=== PATIENT | male | born 1965 | race Caucasian/White ===

== ENCOUNTER 2016-11-26 16:57 | Emergency (ER) | payer OTHER, BC ==
[2016-11-26 17:15] VITALS: BP 145/86; PULSE 83; TEMP 98.1; BMI 28.0
--- NOTE | 2016-11-26 18:22 | PDOC ---
History of Present Illness - General Chief Complaint: Back Pain Stated Complaint: BACK PAIN Time Seen by Provider: 11/26/16 18:15 History Source: Patient Exam Limitations: No Limitations - History of Present Illness Initial Comments: CHIEF COMPLAINT: 51 y/o afebrile male with PMH anxiety, slipped discs in lumbar and cervical spine c/o left sided back pain. HISTORY OF PRESENT ILLNESS: The patient states he was lifting a pipe at work yesterday when he strained his lower back. He continues to have pain that radiates down his left leg into his toes. He denies fall onto back, saddle numbness, urinary or bowel incontinence. He has been taking 800mg of ibuprofen with little relief. Vital signs on arrival are within normal limits. REVIEW OF SYSTEMS: GENERAL/CONSTITUTIONAL: No fever/chills. No weakness. No weight change. HEAD, EYES, EARS, NOSE AND THROAT: No change in vision. No ear pain or discharge. No sore throat. GENITOURINARY: No dysuria, frequency, or change in urination. MUSCULOSKELETAL: +left leg pain. No neck pain. +left sided low back pain. SKIN: No rash or easy bruising. NEUROLOGIC: No headache, vertigo, loss of consciousness, or loss of sensation. PHYSICAL EXAM: GENERAL: The patient is awake, alert, and fully oriented, in no acute distress. He is ambulatory with slowed movements. ABDOMEN: Soft, non-distended, non-tender even to deep palpation, no hepatomegaly or splenomegaly, no masses. BACK: Pain with palpation of left lumbar paravertebral muscles. No midline lumbar spine TTP, step offs or crepitus. EXTREMITIES: Normal range of motion, no edema. NEUROLOGICAL: Normal speech, normal gait. CN II-XII grossly intact. No saddle anesthesia. SKIN: Warm, dry, normal turgor, no rashes or lesions noted. Past History - Past Medical History Allergies/Adverse Reactions: Allergies Allergy/AdvReac Type Severity Reaction Status Date / Time No Known Allergies Allergy Verified 11/26/16 17:12 Home Medications: Ambulatory Orders Amlodipine Besylate [Norvasc -] 10 mg PO DAILY 12/27/11 Lorazepam [Ativan] 1 mg PO TID PRN 07/01/13 Aspirin [Keshawn Chewable] 81 mg PO DAILY 07/13/15 Azelastine HCl [Astelin] 137 mcg NS BID PRN 07/13/15 Cetirizine HCl [Zyrtec -] 10 mg PO DAILY PRN 07/13/15 Diazepam [Valium] 10 mg PO TID #18 tablet MDD 6 11/26/16 Ibuprofen 800 mg PO TID #18 tablet 11/26/16 HTN: Yes Psychiatric Problems: Yes (ANXIETY) - Immunization History Td Vaccination: No (unknown) Immunization Up to Date: Yes - Psycho/Social/Smoking Cessation Hx Anxiety: Yes Suicidal Ideation: No Smoking Status: Yes Smoking History: Current every day smoker Years of Tobacco Use: 30 Have you smoked in the past 12 months: Yes Number of Cigarettes Smoked Daily: 10 Information on smoking cessation initiated: No 'Breaking Loose' booklet given: 03/22/16 Hx Alcohol Use: No Drug/Substance Use Hx: No *Physical Exam - Vital Signs Last Vital Signs Temp Pulse Resp BP Pulse Ox 98.1 F 83 19 145/86 97 11/26/16 17:12 11/26/16 17:12 11/26/16 17:12 11/26/16 17:12 11/26/16 17:12 Medical Decision Making - Medical Decision Making A/P: 51 y/o male with back muscle strain. He does have a history of back issues, and informs me he has a pain management doctor and a regular doctor he is going to follow up with. Plan is as follows: 1. PO valium 2. IM toradol The patient states he feels some relief after toradol and valium and appears slightly more comfortable. Will discharge the patient to home with rx for 800mg of ibuprofen and valium. INformed him valium can cause drowsiness so try not to take if he's going to work or driving. Instructed him to f/u with his PCP and pain management doctor within 1 week and return to the ER with any worsening or concerning symptoms. The patient verbalizes understanding of all instructions, has no further questions and is awaiting discharge. *DC/Admit/Observation/Transfer Diagnosis at time of Disposition: Back pain Qualifiers: Back pain location: low back pain Chronicity: acute Back pain laterality: left Sciatica presence: with sciatica Sciatica laterality: sciatica of left side Qualified Code(s): M54.42 - Lumbago with sciatica, left side - Discharge Dispostion Disposition: HOME Condition at time of disposition: Improved - Referrals Referrals: Thomas,Comer, MD [Primary Care Provider] - Call tomorrow - Patient Instructions Printed Discharge Instructions: DI for Low Back Pain Additional Instructions: Discharge Instructions: -Take Ibuprofen and Valium as prescribed -Valium may cause drowsiness. -Follow up with your doctor and your paperhanger and painter within 1 week -Return to the ER with any worsening or concerning symptoms - Post Discharge Activity Work/School Note: Back to Work
[2016-11-26] MEDS ORDERED: diazePAM 5 MG TABLET PO ONE (18:48)
[2016-11-26] MEDS ORDERED: KETOROLAC TROMETHAMINE 60 MG/2 ML VIAL IM ONE (18:48)
[2016-11-26] MEDS ORDERED: KETOROLAC TROMETHAMINE 60 MG/2 ML VIAL ONE (19:01)
[2016-11-26] MEDS ORDERED: diazePAM 5 MG TABLET ONE (19:02)
== END 2016-11-26 19:42 | disposition home or self-care (01) ==
LOC: JERFT 16:57
PROC: 3E0233Z Introduction of Anti-inflammatory into Muscle, Percutaneous Approach (ICD-10-PCS; principal; 2016-11-26)
DX: M54.42 Lumbago with sciatica, left side (principal); I10 Essential (primary) hypertension; F41.9 Anxiety disorder, unspecified; M50.20 Other cervical disc displacement, unspecified cervical region
CPT/HCPCS: 99281-25

== ENCOUNTER 2016-11-29 09:03 | Emergency (ER) | payer OTHER, BC ==
[2016-11-29 09:10] VITALS: BP 137/82; PULSE 88; TEMP 97.7; BMI 28.0
[2016-11-29] MEDS ORDERED: KETOROLAC TROMETHAMINE 60 MG/2 ML VIAL IM ONE (09:56)
--- NOTE | 2016-11-29 10:02 | PDOC ---
History of Present Illness - General Chief Complaint: Back Pain Stated Complaint: BACK PAIN Time Seen by Provider: 11/29/16 09:39 History Source: Patient Exam Limitations: No Limitations - History of Present Illness Initial Comments: 11/29/16 09:57 51 yr male with chronic low back pain and left elg sciatica. Pt states he has had pain for one week not relieved with valium and ibuprofen. Pt denies urine or bowel incontinence , no groin numbness or tingling. Pt has anxiety and HTN. Severity: reports: moderate Pain Location: reports: back Past History - Past Medical History Allergies/Adverse Reactions: Allergies Allergy/AdvReac Type Severity Reaction Status Date / Time No Known Allergies Allergy Verified 11/29/16 09:06 Home Medications: Ambulatory Orders Amlodipine Besylate [Norvasc -] 10 mg PO DAILY 12/27/11 Lorazepam [Ativan] 1 mg PO TID PRN 07/01/13 Aspirin [Keshawn Chewable] 81 mg PO DAILY 07/13/15 Azelastine HCl [Astelin] 137 mcg NS BID PRN 07/13/15 Cetirizine HCl [Zyrtec -] 10 mg PO DAILY PRN 07/13/15 Diazepam [Valium] 10 mg PO TID #18 tablet MDD 6 11/26/16 Ibuprofen 800 mg PO TID #18 tablet 11/26/16 Oxycodone HCl/Acetaminophen [Percocet 5-325 mg Tablet] 1 - 2 tab PO Q6H PRN #12 tab MDD 8 tabs 11/29/16 HTN: Yes Psychiatric Problems: Yes (ANXIETY) - Immunization History Td Vaccination: No (unknown) Immunization Up to Date: Yes - Psycho/Social/Smoking Cessation Hx Anxiety: Yes Suicidal Ideation: No Smoking Status: Yes Smoking History: Current every day smoker Years of Tobacco Use: 30 Have you smoked in the past 12 months: Yes Number of Cigarettes Smoked Daily: 10 Information on smoking cessation initiated: Yes 'Breaking Loose' booklet given: 11/29/16 Hx Alcohol Use: No Drug/Substance Use Hx: No Substance Use Type: None Trauma Specific PMHX - Complaint Specific PMHX Arthritis: No Back Injury: Yes (workers comp injury ) Review of Systems - Review of Systems Able to Perform ROS?: Yes Is the patient limited Turkmen proficient: No Constitutional: No: Symptoms Reported HEENTM: No: Symptoms Reported Respiratory: No: Symptoms reported Cardiac (ROS): No: Symptoms Reported ABD/GI: No: Symptoms Reported : No: Symptoms Reported Musculoskeletal: Yes: See HPI, Back Pain Integumentary: No: Symptoms Reported Neurological: No: Symptoms reported *Physical Exam - Vital Signs Last Vital Signs Temp Pulse Resp BP Pulse Ox 97.7 F 88 18 137/82 100 11/29/16 09:07 11/29/16 09:07 11/29/16 09:07 11/29/16 09:07 11/29/16 09:07 - Physical Exam General Appearance: Yes: Nourished, Appropriately Dressed, Other (ambulatory ) HEENT: positive: EOMI, PHOEBE Neck: positive: Supple. negative: Tender Respiratory/Chest: positive: Lungs Clear, Normal Breath Sounds Cardiovascular: positive: Regular Rhythm, Regular Rate Musculoskeletal: positive: Normal Inspection, Decreased Range of Motion, Other ( left lower back to buttock tenderness, SLR left positive ). negative: CVA Tenderness, CVA Tenderness (R), CVA Tenderness (L) Extremity: positive: Normal Capillary Refill, Normal Inspection Integumentary: positive: Normal Color, Dry, Warm Neurologic: positive: Fully Oriented, Alert, Normal Mood/Affect, Normal Response , Motor Strength 5/5 Medical Decision Making - Medical Decision Making 11/29/16 10:04 cc: acute on chronic LBP with left leg sciatica no saddle anesthesia , neg bowel or bladder dysfunction pt ambulatory with slight limp will give toradol (pt states this helped last time) pt refused steroids (states it makes him "crazy") pt refused any imaging, states he knows he has herniated discs and sciaitca, has apt with spine neurosurgeon at [facility] on Wednesday will give percocet for pain and pt agree and understand the plan I have discussed "red flags" for pt to watch for and will return to ER if needed *DC/Admit/Observation/Transfer Diagnosis at time of Disposition: Back pain Qualifiers: Back pain location: low back pain Chronicity: chronic Back pain laterality: left Sciatica presence: with sciatica Sciatica laterality: sciatica of left side Qualified Code(s): M54.42 - Lumbago with sciatica, left side; G89.29 - Other chronic pain - Discharge Dispostion Disposition: HOME Condition at time of disposition: Fair - Prescriptions Prescriptions: Oxycodone HCl/Acetaminophen [Percocet 5-325 mg Tablet] 1 - 2 tab PO Q6H PRN #12 tab MDD 8 tabs PRN Reason: Severe Pain - Patient Instructions Additional Instructions: follow with your doctor this week for follow up take the medication as prescribed DO NOT take percocet with valium, space apart no heavy lifting or bending no strenuous activity - Post Discharge Activity Work/School Note: Back to Work
[2016-11-29] MEDS ORDERED: KETOROLAC TROMETHAMINE 60 MG/2 ML VIAL ONE (10:03)
== END 2016-11-29 10:19 | disposition home or self-care (01) ==
LOC: JERFT 09:03
PROC: 3E0233Z Introduction of Anti-inflammatory into Muscle, Percutaneous Approach (ICD-10-PCS; principal; 2016-11-29)
DX: M54.42 Lumbago with sciatica, left side (principal); G89.29 Other chronic pain; I10 Essential (primary) hypertension; F41.9 Anxiety disorder, unspecified; F17.210 Nicotine dependence, cigarettes, uncomplicated; S39.82XS Other specified injuries of lower back, sequela; X58.XXXS Exposure to other specified factors, sequela
CPT/HCPCS: 99281-25

== ENCOUNTER 2016-12-08 21:26 | Emergency (ER) | payer BC, OTHER ==
[2016-12-08 21:52] VITALS: TEMP 98.2; BMI 29.5
--- NOTE | 2016-12-08 22:29 | PDOC ---
History of Present Illness - General History Source: Patient <Pipo Mittal - Last Filed: 12/08/16 22:46> - General History Source: Patient Exam Limitations: No Limitations - History of Present Illness Initial Comments: 12/08/16 22:44 The patient is a 51-year-old male, with a significant past medical history of HTN and anxiety, who presents to the ED with elevation of BP and anxiety after taking his dose of prednisone which he was prescribed for treatment of his sciatica. Pt has experienced a similar episode in the past. This time patient received a lower dose of prednisone because his tachycardia, BP elevation, and anxiety was much worse during his previous episode. On exam, patient does report some numbness around his lips. He denies any chest pain or shortness of breath. PCP: Dr. Guzman <Ingrid Morel - Last Filed: 12/08/16 22:51> - General Chief Complaint: Psychiatric Stated Complaint: Palpitations Time Seen by Provider: 12/08/16 22:28 Past History - Past Medical History HTN: Yes Psychiatric Problems: Yes (ANXIETY) - Immunization History Td Vaccination: No (unknown) Immunization Up to Date: Yes - Psycho/Social/Smoking Cessation Hx Anxiety: Yes Suicidal Ideation: No Smoking Status: Yes Smoking History: Unknown if ever smoked Years of Tobacco Use: 30 Have you smoked in the past 12 months: Yes Number of Cigarettes Smoked Daily: 10 Information on smoking cessation initiated: No 'Breaking Loose' booklet given: 11/29/16 Hx Alcohol Use: No Drug/Substance Use Hx: No Substance Use Type: None <Pipo Mittal - Last Filed: 12/08/16 22:46> <Ingrid Morel - Last Filed: 12/08/16 22:51> - Past Medical History Allergies/Adverse Reactions: Allergies Allergy/AdvReac Type Severity Reaction Status Date / Time No Known Allergies Allergy Verified 12/08/16 21:46 Home Medications: Ambulatory Orders Amlodipine Besylate [Norvasc -] 10 mg PO DAILY 12/27/11 Lorazepam [Ativan] 1 mg PO TID PRN 07/01/13 Diazepam [Valium] 10 mg PO TID #18 tablet MDD 6 11/26/16 Ibuprofen 800 mg PO TID #18 tablet 11/26/16 Oxycodone HCl/Acetaminophen [Percocet 5-325 mg Tablet] 1 - 2 tab PO Q6H PRN #12 tab MDD 8 tabs 11/29/16 Prednisone [Deltasone -] 4 mg PO QID 12/08/16 Review of Systems - Review of Systems Able to Perform ROS?: Yes Comments:: 12/08/16 22:44 CONSTITUTIONAL: Absent: fever, no chills, no fatigue EYES: Absent: visual changes ENT: Absent: ear pain, no sore throat CARDIOVASCULAR: Absent: chest pain, no palpitations RESPIRATORY: Absent: cough, no SOB GI: Absent: abdominal pain, no nausea, no vomiting, no constipation, no diarrhea GENITOURINARY: Absent: dysuria, no frequency, no hematuria MUSKULOSKELETAL: Absent: back pain, no arthralgia, no myalgia SKIN: Absent: rash NEURO Present: numbness around lips Absent: headache <Ingrid Morel - Last Filed: 12/08/16 22:51> *Physical Exam - Vital Signs Last Vital Signs Temp Pulse Resp BP Pulse Ox 98.2 F 98 H 14 137/93 97 12/08/16 21:46 12/08/16 21:46 12/08/16 21:46 12/08/16 22:23 12/08/16 22:23 <Pipo Mittal - Last Filed: 12/08/16 22:46> - Vital Signs Last Vital Signs Temp Pulse Resp BP Pulse Ox 98.2 F 98 H 14 137/93 97 12/08/16 21:46 12/08/16 21:46 12/08/16 21:46 12/08/16 22:23 12/08/16 22:23 - Physical Exam Comments: 12/08/16 22:45 GENERAL: Well-appearing, well-nourished. No apparent distress. HEENT: Normocephalic, atraumatic. PERRL, EOM intact. CARDIOVASCULAR: Normal S1, S2. Regular rate and rhythm. PULMONARY: Clear to auscultation bilaterally. ABDOMEN: Soft, non-distended, non-tender. EXTREMITIES: Normal ROM in all four extremities. No gross deformities. SKIN: Warm, dry. No rash NEUROLOGICAL: No focal neurological deficits. <Ingrid Morel - Last Filed: 12/08/16 22:51> Heart Score/ECG Review - ECG Intrepretation Comment:: 12/08/16 22:50 EKG was reviewed by Dr. Mittal at 22:40. Impression: Normal sinus rhythm. <Ingrid Morel - Last Filed: 12/08/16 22:51> Medical Decision Making - Medical Decision Making 12/08/16 22:47 Dr. Mittal: The scribe's documentation has been prepared under my direction and personally reviewed by me in its entirery. I confirm that the note above accurately reflects all work, treatment, procedures, and medical decision making performed by me. Pt feels better. EKG shows NSR 73, with no changes. Pt will be discharged. <Pipo Mittal - Last Filed: 12/08/16 22:46> *DC/Admit/Observation/Transfer - Discharge Dispostion Admit: No <Pipo Mittal - Last Filed: 12/08/16 22:46> - Attestations Scribe Attestion: 12/08/16 22:45 Documentation prepared by Ingrid Morel, acting as medical office secretary for Pipo Mittal MD. <Ingrid Morel - Last Filed: 12/08/16 22:51> Diagnosis at time of Disposition: Anxiety, Palpitations - Discharge Dispostion Disposition: HOME - Referrals Referrals: Souleymane Guzman MD [Primary Care Provider] - - Patient Instructions Printed Discharge Instructions: DI for Anxiety -- Adult, DI for Palpitations
[2016-12-08 22:51] VITALS: BP 133/91; PULSE 74
--- NOTE | 2016-12-09 13:22 | EKG ---
Test Reason : Blood Pressure : / mmHG Vent. Rate : 073 BPM Atrial Rate : 073 BPM P-R Int : 194 ms QRS Dur : 092 ms QT Int : 370 ms P-R-T Axes : 059 037 033 degrees QTc Int : 407 ms NORMAL SINUS RHYTHM NORMAL ECG WHEN COMPARED WITH ECG OF 13-JUL-2015 19:44, NO SIGNIFICANT CHANGE WAS FOUND Confirmed by SHEILA CHAUDHARY MD ([id number]) on 12/09/2016 1:21:58 PM Referred By: Confirmed By:SHEILA CHAUDHARY MD
== END 2016-12-08 22:51 | disposition home or self-care (01) ==
LOC: JER 21:26
DX: F41.9 Anxiety disorder, unspecified (principal); R00.2 Palpitations; I10 Essential (primary) hypertension; M54.30 Sciatica, unspecified side
CPT/HCPCS: 93005; 93010; 99281-25

== ENCOUNTER 2017-01-13 17:59 | Emergency (ER) | payer BC ==
[2017-01-13 18:02] VITALS: BP 141/98; PULSE 76; TEMP 98; BMI 28.0
== END 2017-01-13 20:16 | disposition left against medical advice (07) ==
LOC: JER 17:59
DX: Z53.21 Procedure and treatment not carried out due to patient leaving prior to being seen by health care provider (principal)
CPT/HCPCS: 99281-25

== ENCOUNTER 2017-01-17 17:05 | Emergency (ER) | payer BC ==
[2017-01-17 17:11] VITALS: BMI 27.7
--- NOTE | 2017-01-17 17:25 | PDOC ---
Attending Attestation - Resident Resident Name: Gen Kumar - ED Attending Attestation I have performed the following: I have examined & evaluated the patient, The case was reviewed & discussed with the resident, I agree w/resident's findings & plan, Exceptions are as noted - HPI HPI: 01/18/17 11:23 Dizzy/Vertigo - Physicial Exam PE: 01/18/17 11:23 Horizontal Nystagmus - Medical Decision Making 01/18/17 11:[address] Kumar Assessment and management plan
--- NOTE | 2017-01-17 18:05 | PDOC ---
History of Present Illness - General Chief Complaint: Lightheaded Stated Complaint: FATIGUE, DIZZINES Time Seen by Provider: 01/17/17 17:16 History Source: Patient Exam Limitations: No Limitations - History of Present Illness Initial Comments: 01/17/17 17:59 Patient is a 51M with history of anxiety and HTN here today complaining of dizziness for the past several weeks. He states that he went to urgent care, where he was told he had vertigo. He endorses associated nausea. He denies diaphoresis, chest pain and shortness of breath. The dizziness is described as the room moving around him. The dizziness is made worse by positional changes. He denies fevers and chills. Past History - Past Medical History Allergies/Adverse Reactions: Allergies Allergy/AdvReac Type Severity Reaction Status Date / Time No Known Allergies Allergy Verified 01/17/17 17:10 Home Medications: Ambulatory Orders Amlodipine Besylate [Norvasc -] 10 mg PO DAILY 12/27/11 Lorazepam [Ativan] 1 mg PO BID PRN 07/01/13 Meclizine HCl 25 mg PO PRN PRN 01/17/17 HTN: Yes Psychiatric Problems: Yes (ANXIETY) - Immunization History Td Vaccination: No (unknown) Immunization Up to Date: Yes - Psycho/Social/Smoking Cessation Hx Anxiety: No Suicidal Ideation: No Smoking Status: Yes Smoking History: Former smoker Years of Tobacco Use: 30 Have you smoked in the past 12 months: Yes Number of Cigarettes Smoked Daily: 10 If you are a former smoker, when did you quit?: 1 MONTH Information on smoking cessation initiated: No 'Breaking Loose' booklet given: 11/29/16 Hx Alcohol Use: No Drug/Substance Use Hx: No Substance Use Type: None Cardiac Specific PMH - Complaint Specific PMHX GERD: No Review of Systems - Review of Systems Comments:: 01/17/17 18:05 GENERAL/CONSTITUTIONAL: No fever or chills. No weakness. HEAD, EYES, EARS, NOSE AND THROAT: No change in vision. No ear pain or discharge. No sore throat. CARDIOVASCULAR: No chest pain or shortness of breath RESPIRATORY: No cough, wheezing, or hemoptysis. GASTROINTESTINAL: Positive for nausea. Negative for vomiting, diarrhea or constipation. GENITOURINARY: No dysuria, frequency, or change in urination. SKIN: No rash NEUROLOGIC: Positive for sinus headache. Negative for vertigo, loss of consciousness, or change in strength/sensation. HEMATOLOGIC/LYMPHATIC: No anemia, easy bleeding, or history of blood clots. ALLERGIC/IMMUNOLOGIC: No hives or skin allergy. *Physical Exam - Vital Signs Last Vital Signs Temp Pulse Resp BP Pulse Ox 98.4 F 82 20 146/82 98 01/17/17 17:06 01/17/17 17:06 01/17/17 17:06 01/17/17 17:06 01/17/17 17:06 - Physical Exam Comments: 01/17/17 18:06 GENERAL: Awake, alert, and fully oriented, in no acute distress HEAD: No signs of trauma, normocephalic, atraumatic EYES: PERRLA, EOMI, horizontal nystagmus, sclera anicteric, conjunctiva clear ENT: Auricles normal inspection, hearing grossly normal, nares patent, oropharynx clear without exudates. Moist mucosa LUNGS: No distress, speaks full sentences, clear to auscultation bilaterally HEART: Regular rate and rhythm, normal S1 and S2, no murmurs, rubs or gallops, peripheral pulses normal and equal bilaterally. ABDOMEN: Soft, nontender, normoactive bowel sounds. No guarding, no rebound. No masses EXTREMITIES: Normal inspection, Normal range of motion, no edema. No clubbing or cyanosis. NEUROLOGICAL: Cranial nerves II through XII grossly intact. Normal speech, normal gait, no focal sensorimotor deficits SKIN: Warm, Dry, normal turgor, no rashes or lesions noted. ED Treatment Course - LABORATORY CBC & Chemistry Diagram: 01/17/17 18:23 01/17/17 18:23 - ADDITIONAL ORDERS Additional order review: 01/17/17 18:23 RBC 4.48 MCV 94.5 MCHC 34.1 RDW 13.3 MPV 6.6 L Neutrophils % 54.6 Lymphocytes % 31.3 Monocytes % 10.5 H Eosinophils % 2.8 Basophils % 0.8 - RADIOLOGY Radiology Studies Ordered: Category Date Time Status CHEST PA & LAT [RAD] Stat Radiology 01/17/17 17:56 Ordered Medical Decision Making - Medical Decision Making 01/17/17 18:08 Patient is a 51M with history of anxiety and HTN here today complaining of weakness. Vital signs stable. Differential diagnosis includes: vertigo, arrhythmia, and ACS. Will do cardiac workup to rule out cardiac cause of dizziness. 01/17/17 18:57 HEART score 2 before troponin result. *DC/Admit/Observation/Transfer Diagnosis at time of Disposition: Dizziness - Attestations Physician Attestion: 01/17/17 19:03 I, Dr. Gen Kumar, attest that this document has been prepared under my direction and personally reviewed by me in its entirety. I further attest, that it accurately reflects all work, treatment, procedures and medical decision -making performed by me.
[2017-01-17 18:40] LABS: BASOPHIL 0.8 % (0-2.0); EOSINOPHIL 2.8 % (0-4.5); MCH 32.3 pg (25.7-33.7); MCHC 34.1 g/dl (32.0-35.9); MEAN CELL VOLUME 94.5 fl (80-96); MEAN PLT VOLUME 6.6 fl (7.5-11.1); NEUTROPHILS 54.6 % (42.8-82.8); PLATELET COUNT 290 K/MM3 (134-434); RDW 13.3 % (11.9-15.9); WHITE BLOOD COUNT 9.3 K/mm3 (4.0-10.0)
[2017-01-17 18:56] LABS: INR 1.03 (0.82-1.09); PROTHROMBIN TIME (PATIENT) 11.3 SEC (9.98-11.88)
[2017-01-17 19:02] LABS: ALBUMIN 3.8 g/dl (3.4-5.0); ANION GAP 6 (8-16); BILIRUBIN,TOTAL 0.3 mg/dL (0.2-1.0); CALCIUM 8.9 mg/dL (8.5-10.1); CO2 29 mmol/L (21-32); CREATININE 0.8 mg/dL (0.7-1.3); GLUCOSE,RANDOM 105 mg/dL (74-106); MAGNESIUM 2.2 mg/dL (1.8-2.4); SGOT/AST 17 U/L (15-37); SGPT/ALT 45 U/L (12-78); TOT PROT 6.5 g/dl (6.4-8.2)
[2017-01-17 19:05] LABS: ALK PHOS 79 U/L (45-117); CPK 77 IU/L (39-308); TROPONIN I < 0.02 ng/ml (0.00-0.05)
--- NOTE | 2017-01-17 20:00 | PDOC ---
*Physical Exam - Vital Signs Last Vital Signs Temp Pulse Resp BP Pulse Ox 98.4 F 82 20 146/82 98 01/17/17 17:06 01/17/17 17:06 01/17/17 17:06 01/17/17 17:06 01/17/17 17:06 ED Treatment Course - LABORATORY CBC & Chemistry Diagram: 01/17/17 18:23 01/17/17 18:23 - ADDITIONAL ORDERS Additional order review: Laboratory Results 01/17/17 01/17/17 18:23 18:23 INR 1.03 Sodium 140 Potassium 3.9 Chloride 105 Carbon Dioxide 29 Anion Gap 6 L BUN 14 Creatinine 0.8 Creat Clearance w eGFR > 60 Random Glucose 105 Calcium 8.9 Magnesium 2.2 D Total Bilirubin 0.3 D AST 17 ALT 45 Alkaline Phosphatase 79 Creatine Kinase 77 Troponin I < 0.02 Total Protein 6.5 Albumin 3.8 01/17/17 18:23 RBC 4.48 MCV 94.5 MCHC 34.1 RDW 13.3 MPV 6.6 L Neutrophils % 54.6 Lymphocytes % 31.3 Monocytes % 10.5 H Eosinophils % 2.8 Basophils % 0.8 Medical Decision Making - Medical Decision Making 01/17/17 19:41 Patient is a 51 year old male signed out to me by the day team (Dr. Kumar) C/O chest pain Dx: ACS workup - Check CXR - Check labs - discharge if normal 01/17/17 19:43 CBC WBC 9.3 K/mm3 (4.0-10.0) 01/17/17 18:23 RBC 4.48 M/mm3 (4.00-5.60) 01/17/17 18:23 Hgb 14.4 GM/dL (11.7-16.9) 01/17/17 18:23 Hct 42.3 % (35.4-49) 01/17/17 18:23 MCV 94.5 fl (80-96) 01/17/17 18:23 MCH 32.3 pg (25.7-33.7) 01/17/17 18:23 MCHC 34.1 g/dl (32.0-35.9) 01/17/17 18:23 RDW 13.3 % (11.9-15.9) 01/17/17 18:23 Plt Count 290 K/MM3 (134-434) 01/17/17 18:23 MPV 6.6 fl (7.5-11.1) L 01/17/17 18:23 Neutrophils % 54.6 % (42.8-82.8) 01/17/17 18:23 Lymphocytes % 31.3 % (8-40) 01/17/17 18:23 Monocytes % 10.5 % (3.8-10.2) H 01/17/17 18:23 Eosinophils % 2.8 % (0-4.5) 01/17/17 18:23 Basophils % 0.8 % (0-2.0) 01/17/17 18:23 Within normal limits CMP Sodium 140 mmol/L (136-145) 01/17/17 18:23 Potassium 3.9 mmol/L (3.5-5.1) 01/17/17 18:23 Chloride 105 mmol/L (98-107) 01/17/17 18:23 Carbon Dioxide 29 mmol/L (21-32) 01/17/17 18:23 Anion Gap 6 (8-16) L 01/17/17 18:23 BUN 14 mg/dL (7-18) 01/17/17 18:23 Creatinine 0.8 mg/dL (0.7-1.3) 01/17/17 18:23 Creat Clearance w eGFR > 60 (>60) 01/17/17 18:23 Random Glucose 105 mg/dL (74-106) 01/17/17 18:23 Calcium 8.9 mg/dL (8.5-10.1) 01/17/17 18:23 Magnesium 2.2 mg/dL (1.8-2.4) D 01/17/17 18:23 Total Bilirubin 0.3 mg/dL (0.2-1.0) D 01/17/17 18:23 AST 17 U/L (15-37) 01/17/17 18:23 ALT 45 U/L (12-78) 01/17/17 18:23 Alkaline Phosphatase 79 U/L (45-117) 01/17/17 18:23 Creatine Kinase 77 IU/L (39-308) 01/17/17 18:23 Troponin I < 0.02 ng/ml (0.00-0.05) 01/17/17 18:23 Total Protein 6.5 g/dl (6.4-8.2) 01/17/17 18:23 Albumin 3.8 g/dl (3.4-5.0) 01/17/17 18:23 Within normal limits, Trop(-), Reassuring for ACS CXR: No acute pathology noted Spoke, in depth, with patient and he is comfortable with discharge and planning follow up with ENT next week. Discussed various causes of vertigo and use and precautions for meclizine. Patient endorsed understanding. Provided lab results and return precautions *DC/Admit/Observation/Transfer Diagnosis at time of Disposition: Dizziness - Discharge Dispostion Disposition: HOME Condition at time of disposition: Stable Admit: No - Referrals Referrals: Souleymane Guzman MD [Primary Care Provider] - - Patient Instructions Printed Discharge Instructions: DI for Vertigo Additional Instructions: Thank you for trusting us with your health care today. I hope you were satisfied with the care we provided. Based on your symptoms and negative workup in the emergency department today, you have been diagnosed with vertigo, You should follow up with your primary care physician or Dr. Guzman in the next week for further evaluation of your vertigo. It is important to take all medication as directed by the prescribing physician. Meclizine is typically taken every 6 hours as needed for dizziness. You should take this if you start to feel dizzy. Take the next dose in 6 hours if you still feel dizzy. You can take an additional dose every 6 hours as long as you are feeling dizzy and discontinue as soon as you stop feeling the symptoms. You should use care when taking this medication because it can cause drowsiness. Avoid driving or operating heavy machenery until you know how the medicine will affect you. Please return to the emergency department if you have any significant worsening of your symptoms or develop any new or concerning symptoms. Print Language: AZERI - Attestations Physician Attestion: 01/17/17 20:06 I, Dr. Jesse Kevin, attest that this document has been prepared under my direction and personally reviewed by me in its entirety. I further attest, that it accurately reflects all work, treatment, procedures and medical decision -making performed by me.
[2017-01-17 21:32] VITALS: BP 140/65; PULSE 86; TEMP 98.2
--- NOTE | 2017-01-18 19:01 | EKG ---
Test Reason : Blood Pressure : / mmHG Vent. Rate : 065 BPM Atrial Rate : 065 BPM P-R Int : 174 ms QRS Dur : 092 ms QT Int : 378 ms P-R-T Axes : 015 015 005 degrees QTc Int : 393 ms NORMAL SINUS RHYTHM NORMAL ECG WHEN COMPARED WITH ECG OF 08-DEC-2016 22:40, NO SIGNIFICANT CHANGE WAS FOUND Confirmed by VENICE COYNE MD ([id number]) on 01/18/2017 7:01:32 PM Referred By: Confirmed By:VENICE COYNE MD
== END 2017-01-17 20:22 | disposition home or self-care (01) ==
LOC: JER 17:05
DX: R42 Dizziness and giddiness (principal); I10 Essential (primary) hypertension; F41.9 Anxiety disorder, unspecified
CPT/HCPCS: 36415; 71020-TC; 80053; 83735; 84484; 85025; 85610; 93005; 93010; 99284-25

== ENCOUNTER 2017-04-21 07:27 | Emergency (ER) | payer BC, OTHER ==
[2017-04-21 07:32] VITALS: BMI 28.5
[2017-04-21] MEDS ORDERED: KETOROLAC TROMETHAMINE 30 MG/1 ML VIAL IVPUSH ONE (08:40)
[2017-04-21] MEDS ORDERED: traMADol HCL 50 MG TABLET PO ONE (08:40)
--- NOTE | 2017-04-21 08:46 | PDOC ---
History of Present Illness - General Chief Complaint: Pain, Acute Stated Complaint: BACK AND SIDE PAIN Time Seen by Provider: 04/21/17 08:19 History Source: Patient - History of Present Illness Occurred: reports: other Severity: reports: severe Pain Location: reports: back Past History - Past Medical History Allergies/Adverse Reactions: Allergies Allergy/AdvReac Type Severity Reaction Status Date / Time No Known Allergies Allergy Verified 04/21/17 07:32 Home Medications: Ambulatory Orders Amlodipine Besylate [Norvasc -] 10 mg PO DAILY 12/27/11 Lorazepam [Ativan] 1 mg PO BID PRN 07/01/13 Meclizine HCl 25 mg PO PRN PRN 01/17/17 Tramadol HCl 50 mg PO Q6H #15 tablet MDD 200mg 04/21/17 COPD: No HTN: Yes Psychiatric Problems: Yes (ANXIETY) - Immunization History Td Vaccination: No (unknown) Immunization Up to Date: Yes - Suicide/Smoking/Psychosocial Hx Smoking Status: Yes Smoking History: Former smoker Years of Tobacco Use: 30 Have you smoked in the past 12 months: Yes Number of Cigarettes Smoked Daily: 10 If you are a former smoker, when did you quit?: 3 MO ago Information on smoking cessation initiated: No 'Breaking Loose' booklet given: 11/29/16 Hx Alcohol Use: No Drug/Substance Use Hx: No Substance Use Type: None Trauma Specific PMHX - Complaint Specific PMHX Arthritis: No Back Injury: Yes (workers comp injury ) Review of Systems - Review of Systems Constitutional: No: Chills, Fever ABD/GI: No: Nausea, Vomiting, Abdominal cramping : No: Dysuria, Hematuria Musculoskeletal: Yes: Back Pain Neurological: No: Numbness, Tingling, Weakness *Physical Exam - Vital Signs Last Vital Signs Temp Pulse Resp BP Pulse Ox 97.4 F L 73 20 151/99 99 04/21/17 07:29 04/21/17 07:29 04/21/17 07:29 04/21/17 07:29 04/21/17 07:29 - Physical Exam General Appearance: Yes: Appropriately Dressed, Mild Distress HEENT: positive: Normal Voice Neck: positive: Supple Respiratory/Chest: negative: Respiratory Distress Gastrointestinal/Abdominal: positive: Soft. negative: Tender Musculoskeletal: positive: Vertebral Tenderness (to R lower back). negative: CVA Tenderness Extremity: positive: Normal Inspection Integumentary: positive: Dry, Warm Neurologic: positive: Fully Oriented, Alert, Normal Mood/Affect ED Treatment Course - LABORATORY CBC & Chemistry Diagram: 04/21/17 09:15 04/21/17 09:15 - RADIOLOGY Radiology Studies Ordered: Category Date Time Status KIDNEY / RENAL US [US] Stat Ultrasound 04/21/17 08:29 Ordered Medical Decision Making - Medical Decision Making 04/21/17 08:41 51 yo M, h/o herniated disc to LS spine, chronic LBP, takes motrin as needed, here w/ pain to R lower back. As per patient, chronic back pain usually located to mid lower back, but for the past 2 weeks has now localized to right lower back and is severe. Taken motrin with no relief. No recent trauma or other inciting factors. No lower extremity weakness, bowel or bladder incontinence or saddle anesthesia. No recent trauma. No nausea, vomiting, fever, chills, dysuria or hematuria. No history of kidney stones. Was seen in urgent care yesterday and referred to ER for possible ultrasound r/o hydro/ stone. Was treated w/ IM toradol which helped minimally per pt See exam Acute on chronic back pain H/o herniated discs Referred to ED by for US to r/o hydro/stone though unlikely as no n/v or urinary sxs, but pt and insistent upon imaging -pain control -labs -US 04/21/17 08:45 04/21/17 08:46 04/21/17 10:50 Labs and ultrasound normal. Patient reports improvement with meds. We will DC with PMD follow-up on *DC/Admit/Observation/Transfer Diagnosis at time of Disposition: Back pain Qualifiers: Back pain location: low back pain Chronicity: acute Back pain laterality: right Sciatica presence: without sciatica Qualified Code(s): M54.5 - Low back pain - Discharge Dispostion Disposition: HOME Condition at time of disposition: Improved - Prescriptions Prescriptions: Tramadol HCl 50 mg PO Q6H #15 tablet MDD 200mg - Referrals Referrals: Souleymane Guzman MD [Primary Care Provider] - - Patient Instructions Printed Discharge Instructions: Low Back Pain Additional Instructions: Your labs and ultrasound were normal. Take medication as prescribed for your pain and follow-up with your PMD - Post Discharge Activity Forms/Work/School Notes: Back to Work
[2017-04-21] MEDS ORDERED: KETOROLAC TROMETHAMINE 30 MG/1 ML VIAL ONE (09:04)
[2017-04-21] MEDS ORDERED: CYCLOBENZAPRINE HCL 10 MG TABLET (FP) ONE (09:04)
[2017-04-21] MEDS ORDERED: traMADol HCL 50 MG TABLET ONE (09:04)
[2017-04-21] MEDS: CYCLOBENZAPRINE HCL 5 MG TABLET PO SCH ×2 (09:21→10:13)
[2017-04-21 09:40] LABS: BASOPHIL 0.9 % (0-2.0); EOSINOPHIL 2.4 % (0-4.5); MCH 31.8 pg (25.7-33.7); MCHC 34.1 g/dl (32.0-35.9); MEAN CELL VOLUME 93.1 fl (80-96); MEAN PLT VOLUME 6.6 fl (7.5-11.1); NEUTROPHILS 49.2 % (42.8-82.8); PLATELET COUNT 254 K/MM3 (134-434); RDW 12.8 % (11.9-15.9); WHITE BLOOD COUNT 6.4 K/mm3 (4.0-10.0)
[2017-04-21 09:58] LABS: ALBUMIN 3.6 g/dl (3.4-5.0); ANION GAP 4 (8-16); CALCIUM 8.9 mg/dL (8.5-10.1); CO2 29 mmol/L (21-32); CREATININE 0.8 mg/dL (0.7-1.3); GLUCOSE,RANDOM 90 mg/dL (74-106); SGOT/AST 15 U/L (15-37); SGPT/ALT 36 U/L (12-78)
[2017-04-21 09:59] LABS: PH,URINE 6.5 (5.0-8.0); URINE APPEARANCE CLEAR; URINE BILIRUBIN NEGATIVE (NEGATIVE); URINE BLOOD NEGATIVE (NEGATIVE); URINE COLOR LT. YELLOW; URINE GLUCOSE (UA) NEGATIVE (NEGATIVE); URINE KETONE NEGATIVE (NEGATIVE); URINE NITRITE NEGATIVE (NEGATIVE); URINE PROTEIN NEGATIVE (NEGATIVE); URINE UROBILINOGEN 0.2 mg/dL (0.2-1.0)
[2017-04-21 10:00] LABS: ALK PHOS 82 U/L (45-117); BILIRUBIN,TOTAL 0.8 mg/dL (0.2-1.0); TOT PROT 6.4 g/dl (6.4-8.2)
[2017-04-21 11:16] VITALS: BP 117/68; PULSE 76; TEMP 98
[2017-04-21 11:58] LABS: URINE LEUK ESTERASE Negative (NEGATIVE)
== END 2017-04-21 11:17 | disposition home or self-care (01) ==
LOC: JER 07:27
PROC: 3E0333Z Introduction of Anti-inflammatory into Peripheral Vein, Percutaneous Approach (ICD-10-PCS; principal; 2017-04-21)
DX: M54.5 Low back pain (principal); Z87.39 Personal history of other diseases of the musculoskeletal system and connective tissue; I10 Essential (primary) hypertension; F41.9 Anxiety disorder, unspecified; Z87.891 Personal history of nicotine dependence
CPT/HCPCS: 36415; 76775-TC; 80053; 81003; 85025; 99282-25

== ENCOUNTER 2017-05-26 00:22 | Emergency (ER) | payer BC ==
--- NOTE | 2017-05-26 01:19 | PDOC ---
History of Present Illness - General Chief Complaint: Psychiatric Stated Complaint: anxiety Time Seen by Provider: 05/26/17 00:54 History Source: Patient - History of Present Illness Initial Comments: 05/26/17 01:16 52-year-old male with history of anxiety complaining of waking up from sleep with heart racing, fast breathing,diaphoresis, and palpitations. Patient checked her blood pressure was 160/70 which is slightly higher than 140/70 the patient usually gets when he has an anxiety attack. this is similar to prior anxiety attacks. Patient reports that he has been suffering with anxiety for the past 12 years and currently on Ativan PRN. Patient currently denies any symptoms and would like to be discharged home. Patient was concerned due to the higher reading of the blood pressure at home. denies chest pain, dizziness, nausea, Past History - Past Medical History Allergies/Adverse Reactions: Allergies Allergy/AdvReac Type Severity Reaction Status Date / Time No Known Allergies Allergy Verified 05/26/17 01:52 Home Medications: Ambulatory Orders Amlodipine Besylate [Norvasc -] 10 mg PO DAILY 12/27/11 Lorazepam [Ativan] 1 mg PO BID PRN 07/01/13 Meclizine HCl 25 mg PO PRN PRN 01/17/17 Tramadol HCl 50 mg PO Q6H #15 tablet MDD 200mg 04/21/17 COPD: No HTN: Yes Psychiatric Problems: Yes (ANXIETY) - Immunization History Td Vaccination: No (unknown) Immunization Up to Date: Yes - Suicide/Smoking/Psychosocial Hx Smoking Status: Yes Smoking History: Former smoker Years of Tobacco Use: 30 Have you smoked in the past 12 months: Yes Number of Cigarettes Smoked Daily: 10 If you are a former smoker, when did you quit?: 3 MO ago 'Breaking Loose' booklet given: 11/29/16 Hx Alcohol Use: No Drug/Substance Use Hx: No Substance Use Type: None Review of Systems - Review of Systems Able to Perform ROS?: Yes Is the patient limited Mohawk proficient: No Constitutional: Yes: Diaphoresis. No: Symptoms Reported, See HPI, Chills, Fever , Loss of Appetite, Malaise, Night Sweats, Weakness, Weight Stable, Unintentional Wgt. Loss, Unexplained wgt Loss, Other Respiratory: Yes: Other (fast breathing) Cardiac (ROS): Yes: Palpitations. No: Symptoms Reported, See HPI, Chest Pain, Edema, Irregular Heart Rate, Lightheadedness, Syncope, Chest Tightness, Other *Physical Exam - Physical Exam General Appearance: Yes: Appropriately Dressed Respiratory/Chest: positive: Normal Breath Sounds Cardiovascular: positive: Regular Rhythm, Regular Rate Medical Decision Making - Medical Decision Making 05/26/17 01:26 A: anxiety P: EKG v/s close pmd follow up *DC/Admit/Observation/Transfer Diagnosis at time of Disposition: Anxiety - Discharge Dispostion Disposition: HOME - Referrals Referrals: Souleymane Guzman MD [Primary Care Provider] - - Patient Instructions Printed Discharge Instructions: Anxiety Disorders Additional Instructions: follow up with your doctor as soon as possible. return to the ER if symptoms worsen. - Post Discharge Activity
--- NOTE | 2017-05-26 01:23 | PDOC ---
Medical Decision Making - Medical Decision Making 05/26/17 01:23 agree with care from ANGELICA Blevins *DC/Admit/Observation/Transfer Diagnosis at time of Disposition: Anxiety - Discharge Dispostion Disposition: HOME - Referrals - Patient Instructions Printed Discharge Instructions: Anxiety Disorders Additional Instructions: follow up with your doctor as soon as possible. return to the ER if symptoms worsen. - Post Discharge Activity
[2017-05-26 01:48] VITALS: BP 128/86; PULSE 70; TEMP 98.7; BMI 28.8
[2017-05-26] MEDS ORDERED: LORazepam 1 MG TABLET PO ONE (02:19)
[2017-05-26] MEDS ORDERED: LORazepam 0.5 MG TABLET ONE (02:36)
--- NOTE | 2017-05-26 13:18 | EKG ---
Test Reason : Blood Pressure : / mmHG Vent. Rate : 070 BPM Atrial Rate : 070 BPM P-R Int : 208 ms QRS Dur : 090 ms QT Int : 378 ms P-R-T Axes : 051 034 023 degrees QTc Int : 408 ms NORMAL SINUS RHYTHM NORMAL ECG WHEN COMPARED WITH ECG OF 17-JAN-2017 18:32, NO SIGNIFICANT CHANGE WAS FOUND Confirmed by CHONG NOLASCO MD ([id number]) on 05/26/2017 1:17:46 PM Referred By: Confirmed By:CHONG NOLASCO MD
== END 2017-05-26 02:39 | disposition home or self-care (01) ==
LOC: JER 00:22
DX: F41.9 Anxiety disorder, unspecified (principal); Z87.891 Personal history of nicotine dependence; I10 Essential (primary) hypertension
CPT/HCPCS: 93005; 93010; 99281-25

== ENCOUNTER 2017-06-11 20:34 | Emergency (ER) | payer BC ==
--- NOTE | 2017-06-11 20:39 | PDOC ---
Rapid Medical Evaluation Time Seen by Provider: 06/11/17 20:35 Medical Evaluation: Allergies Allergy/AdvReac Type Severity Reaction Status Date / Time No Known Allergies Allergy Verified 05/26/17 01:52 06/11/17 20:36 I have performed a brief in-person evaluation of this patient. The patient presents with a chief complaint of:ant mid sternum cp/ epigastric pain since yesterday. Spoke to GI/Dr. Patel, states can be reflux. Pt states he tastes a sour-ness since yesterday.Dnies f/c, n/v, dizziness/lightheadedness Pertinent physical exam findings:L/S CTAb. Cardiac: RRR, S1, S2 I have ordered the following: cardiac profile, ekg, cxr, cbc, cmp,ua The patient will proceed to the ED for further evaluation Discharge Disposition - Referrals Referrals: Souleymane Guzman MD [Primary Care Provider] - - Patient Instructions - Post Discharge Activity
[2017-06-11 21:01] VITALS: BP 117/80; PULSE 62; TEMP 98; BMI 28.8
[2017-06-11 21:04] LABS: EOS % 1.4 % (0-4.5); HEMATOCRIT 40.2 % (35.4-49); HEMOGLOBIN 13.7 GM/dL (11.7-16.9); MCH 30.9 pg (25.7-33.7); MEAN PLT VOLUME 6.8 fl (7.5-11.1); MONO % 7.5 % (3.8-10.2); NEUT % 52.1 % (42.8-82.8); PLATELET COUNT 301 K/MM3 (134-434); RBC 4.42 M/mm3 (4.00-5.60); RDW 12.9 % (11.9-15.9); WHITE BLOOD COUNT 9.3 K/mm3 (4.0-10.0)
[2017-06-11 21:13] LABS: URINE APPEARANCE SLCLOUDY; URINE BILIRUBIN NEGATIVE (NEGATIVE); URINE BLOOD NEGATIVE (NEGATIVE); URINE COLOR LTYELLOW; URINE GLUCOSE (UA) NEGATIVE (NEGATIVE); URINE KETONE NEGATIVE (NEGATIVE); URINE LEUK ESTERASE NEGATIVE (NEGATIVE); URINE NITRITE NEGATIVE (NEGATIVE); URINE PROTEIN NEGATIVE (NEGATIVE); URINE UROBILINOGEN NEGATIVE mg/dL (0.2-1.0)
--- NOTE | 2017-06-11 21:31 | PDOC ---
History of Present Illness <Trini Martinez - Last Filed: 06/11/17 22:30> - History of Present Illness Initial Comments: 06/11/17 23:06 Patient is a 52M with PMHx of untreated GERD, anxiety with panic attacks, HTN, cigarette use, who presents to the ED with chest pain earlier today. Patient states that his pain is sharp, radiates downward, made worse by meals. Patient also reports bad taste in his mouth. Patient states the pain began this morning after eating breakfast. Patient called his GI who referred his to the ED due to his paternal FMHx of [place]. Patient reports mild relief with Tums. Denie sob, palpitations, fever chills, recent travel, dysuria, nausea vomiting, diarrhea. Social Hx: 15 packs/year Family Hx: Father passed at age 33 from [place]. PCP: Souleymane Guzman GI: Kj Patel <Mendy Carl - Last Filed: 06/11/17 23:20> - General Chief Complaint: Chest Pain Stated Complaint: CHEST PAIN Time Seen by Provider: 06/11/17 20:35 Past History - Past Medical History Anemia: No Asthma: No Cancer: No Cardiac Disorders: No CVA: No COPD: No DVT: No Dementia: No Diabetes: No Dialysis: No GI Disorders: Yes (GERD) Disorders: No HTN: Yes Hypercholesterolemia: No Kidney Stones: No Liver Disease: No Psychiatric Problems: Yes (ANXIETY) Seizures: No Thyroid Disease: No Lung CA: No - Immunization History Td Vaccination: No (unknown) Immunization Up to Date: Yes - Suicide/Smoking/Psychosocial Hx Smoking Status: Yes Smoking History: Never smoked Years of Tobacco Use: 30 Have you smoked in the past 12 months: No Number of Cigarettes Smoked Daily: 10 If you are a former smoker, when did you quit?: 3 MO ago Information on smoking cessation initiated: No 'Breaking Loose' booklet given: 11/29/16 Hx Alcohol Use: No Drug/Substance Use Hx: No Substance Use Type: None <Trini Martinez - Last Filed: 06/11/17 22:30> <Mendy Carl - Last Filed: 06/11/17 23:20> - Past Medical History Allergies/Adverse Reactions: Allergies Allergy/AdvReac Type Severity Reaction Status Date / Time No Known Allergies Allergy Verified 06/11/17 21:00 Home Medications: Ambulatory Orders Amlodipine Besylate [Norvasc -] 10 mg PO DAILY 12/27/11 Lorazepam [Ativan] 1 mg PO BID PRN 07/01/13 Meclizine HCl 25 mg PO PRN PRN 01/17/17 Tramadol HCl 50 mg PO Q6H #15 tablet MDD 200mg 04/21/17 Review of Systems - Review of Systems Comments:: 06/11/17 23:17 GENERAL/CONSTITUTIONAL: No fever or chills. No weakness. HEAD, EYES, EARS, NOSE AND THROAT: No change in vision. No ear pain or discharge. No sore throat. CARDIOVASCULAR: +substernal chest pain. no shortness of breath. RESPIRATORY: No cough, wheezing, or hemoptysis. GASTROINTESTINAL: No nausea, vomiting, diarrhea or constipation. GENITOURINARY: No dysuria, frequency, or change in urination. MUSCULOSKELETAL: No joint or muscle swelling or pain. No neck or back pain. SKIN: No rash NEUROLOGIC: No headache, vertigo, loss of consciousness, or change in strength/ sensation. ENDOCRINE: No increased thirst. No abnormal weight change. HEMATOLOGIC/LYMPHATIC: No anemia, easy bleeding, or history of blood clots. ALLERGIC/IMMUNOLOGIC: No hives or skin allergy. <Mendy Carl - Last Filed: 06/11/17 23:20> *Physical Exam - Vital Signs Last Vital Signs Temp Pulse Resp BP Pulse Ox 98.0 F 62 20 117/80 98 06/11/17 21:00 06/11/17 21:00 06/11/17 21:00 06/11/17 21:00 06/11/17 21:00 <Trini Martinez - Last Filed: 06/11/17 22:30> - Vital Signs Last Vital Signs Temp Pulse Resp BP Pulse Ox 98.0 F 62 20 117/80 98 06/11/17 21:00 06/11/17 21:00 06/11/17 21:00 06/11/17 21:00 06/11/17 21:00 - Physical Exam Comments: 06/11/17 23:19 GENERAL: Awake, alert, and fully oriented, in no acute distress HEAD: No signs of trauma EYES: PERRLA, EOMI, sclera anicteric, conjunctiva clear ENT: Auricles normal inspection, hearing grossly normal, nares patent, oropharynx clear without exudates. Moist mucosa NECK: Normal ROM, supple, no lymphadenopathy, JVD, or masses LUNGS: Breath sounds equal, clear to auscultation bilaterally. No wheezes, and no crackles HEART: Regular rate and rhythm, normal S1 and S2, no murmurs, rubs or gallops ABDOMEN: Soft, nontender, normoactive bowel sounds. No guarding, no rebound. No masses EXTREMITIES: Normal range of motion, no edema. No clubbing or cyanosis. No cords, erythema, or tenderness NEUROLOGICAL: Cranial nerves II through XII grossly intact. Normal speech, normal gait SKIN: Warm, Dry, normal turgor, no rashes or lesions noted. <Mendy Carl - Last Filed: 06/11/17 23:20> ED Treatment Course - LABORATORY CBC & Chemistry Diagram: 06/11/17 20:46 06/11/17 20:46 - ADDITIONAL ORDERS Additional order review: Laboratory Results 06/11/17 20:40 Urine Color Ltyellow Urine Appearance Slcloudy Urine pH 7.0 Ur Specific Geraldine 1.014 Urine Protein Negative Urine Glucose (UA) Negative Urine Ketones Negative Urine Blood Negative Urine Nitrite Negative Urine Bilirubin Negative Urine Urobilinogen Negative Ur Leukocyte Esterase Negative 06/11/17 20:46 RBC 4.42 MCV 91.0 MCHC 34.0 RDW 12.9 MPV 6.8 L Neutrophils % 52.1 Lymphocytes % 38.0 Monocytes % 7.5 Eosinophils % 1.4 Basophils % 1.0 <Trini Martinez - Last Filed: 06/11/17 22:30> - LABORATORY CBC & Chemistry Diagram: 06/11/17 20:46 06/11/17 20:46 - ADDITIONAL ORDERS Additional order review: Laboratory Results 06/11/17 06/11/17 20:46 20:40 Sodium 140 Potassium 3.9 Chloride 107 Carbon Dioxide 25 Anion Gap 8 BUN 16 Creatinine 0.9 Creat Clearance w eGFR > 60 Random Glucose 153 H D Calcium 8.9 Total Bilirubin 0.3 D AST 11 L D ALT 30 Alkaline Phosphatase 88 Creatine Kinase 73 Troponin I < 0.02 Total Protein 6.4 Albumin 3.7 Urine Color Ltyellow Urine Appearance Slcloudy Urine pH 7.0 Ur Specific Geraldine 1.014 Urine Protein Negative Urine Glucose (UA) Negative Urine Ketones Negative Urine Blood Negative Urine Nitrite Negative Urine Bilirubin Negative Urine Urobilinogen Negative Ur Leukocyte Esterase Negative 06/11/17 20:46 RBC 4.42 MCV 91.0 MCHC 34.0 RDW 12.9 MPV 6.8 L Neutrophils % 52.1 Lymphocytes % 38.0 Monocytes % 7.5 Eosinophils % 1.4 Basophils % 1.0 - Medications Given in the ED: ED Medications Discontinued Medications Generic Name Dose Route Start Last Admin Trade Name Paola PRN Reason Stop Dose Admin Al Hydroxide/Mg Hydroxide 30 ml 06/11/17 22:25 06/11/17 22:34 Mylanta Oral Suspension - PO 06/11/17 22:26 30 ml ONCE ONE Administration <Mendy Carl - Last Filed: 06/11/17 23:20> *DC/Admit/Observation/Transfer - Discharge Dispostion Admit: No <Trini Martinez - Last Filed: 06/11/17 22:30> - Attestations Scribe Attestion: 06/11/17 23:20 Documentation prepared by Mendy Carl, acting as biomedical field service engineer for Trini Martinez MD. <Mendy Carl - Last Filed: 06/11/17 23:20> Diagnosis at time of Disposition: Atypical chest pain, Anxiety - Discharge Dispostion Disposition: HOME Condition at time of disposition: Stable - Referrals Referrals: Souleymane Guzman MD [Primary Care Provider] - Nabil Montesinos MD [Staff Physician] - - Patient Instructions Printed Discharge Instructions: DI for Cardiac Catheterization, DI for Atypical Chest Pain - Post Discharge Activity
[2017-06-11 21:38] LABS: ALBUMIN 3.7 g/dl (3.4-5.0); ANION GAP 8 (8-16); BILIRUBIN,TOTAL 0.3 mg/dL (0.2-1.0); BLOOD UREA NITROGEN 16 mg/dL (7-18); CALCIUM 8.9 mg/dL (8.5-10.1); CHLORIDE 107 mmol/L (98-107); CO2 25 mmol/L (21-32); CREATININE 0.9 mg/dL (0.7-1.3); GLUCOSE,RANDOM 153 mg/dL (74-106); POTASSIUM 3.9 mmol/L (3.5-5.1); SGOT/AST 11 U/L (15-37); SGPT/ALT 30 U/L (12-78); SODIUM 140 mmol/L (136-145); TOT PROT 6.4 g/dl (6.4-8.2)
[2017-06-11 21:40] LABS: ALK PHOS 88 U/L (45-117)
[2017-06-11] MEDS ORDERED: MAG HYDROX/AL HYDROX/SIMETH 30 ML UNIT-DOSE CUP PO ONE (22:25)
[2017-06-11] MEDS ORDERED: MAG HYDROX/AL HYDROX/SIMETH 30 ML UNIT-DOSE CUP ONE (22:33)
--- NOTE | 2017-06-14 21:49 | EKG ---
Test Reason : Blood Pressure : / mmHG Vent. Rate : 067 BPM Atrial Rate : 067 BPM P-R Int : 196 ms QRS Dur : 094 ms QT Int : 388 ms P-R-T Axes : 050 037 018 degrees QTc Int : 409 ms NORMAL SINUS RHYTHM NORMAL ECG WHEN COMPARED WITH ECG OF 26-MAY-2017 01:37, NO SIGNIFICANT CHANGE WAS FOUND Confirmed by VENICE COYNE MD ([id number]) on 06/14/2017 9:49:37 PM Referred By: Confirmed By:VENICE COYNE MD
== END 2017-06-11 22:43 | disposition home or self-care (01) ==
LOC: JER 20:34
DX: R07.89 Other chest pain (principal); I10 Essential (primary) hypertension; K21.9 Gastro-esophageal reflux disease without esophagitis; F41.9 Anxiety disorder, unspecified; F17.210 Nicotine dependence, cigarettes, uncomplicated
CPT/HCPCS: 36415; 71046-TC; 80053; 81003; 82550; 84484; 85025; 93005; 93010; 99283-25

== ENCOUNTER 2017-10-22 19:20 | Emergency (ER) | payer BC ==
[2017-10-22 19:26] VITALS: TEMP 97.2; BMI 29.6
[2017-10-22] MEDS ORDERED: SODIUM CHLORIDE 1,000 ML IV STA (19:37)
[2017-10-22] MEDS ORDERED: MECLIZINE HCL 25 MG TABLET (FP) PO ONE (19:38)
[2017-10-22] MEDS ORDERED: MECLIZINE HCL 25 MG TABLET (FP) ONE (19:43)
[2017-10-22 20:08] LABS: BASO % 0.2 % (0-2.0); EOS % 2.4 % (0-4.5); HEMATOCRIT 42.2 % (35.4-49); HEMOGLOBIN 14.3 GM/dL (11.7-16.9); LYMPH % 37.7 % (8-40); MCH 31.4 pg (25.7-33.7); MCHC 33.9 g/dl (32.0-35.9); MEAN CELL VOLUME 92.6 fl (80-96); MEAN PLT VOLUME 6.6 fl (7.5-11.1); MONO % 8.4 % (3.8-10.2); NEUT % 51.3 % (42.8-82.8); PLATELET COUNT 284 K/MM3 (134-434); RBC 4.56 M/mm3 (4.00-5.60); RDW 13.3 % (11.9-15.9)
--- NOTE | 2017-10-22 20:09 | PDOC ---
History of Present Illness - General Chief Complaint: Lightheaded Stated Complaint: dizziness Time Seen by Provider: 10/22/17 19:25 - History of Present Illness Initial Comments: 10/22/17 20:09 The patient is a 52 year old male with a history of HTN, Vertigo who presents for evaluation of lightheadedness. The patient reports that over the past 1 week, he has been experiencing sinus pressure and headache for which he was evaluated by his ENT. He notes that he was in radiology obtaining a CT head and facial bones at the recommendation of his ENT, when he experienced a sensation of lightheadedness and dizziness with the room spinning around himself prompting his presentation to the ED for further evaluation. He notes that he was working outside today and has not drank much fluids and also notes increased social stressors lately. He otherwise denies fevers, chills, SOB, chest pain, nausea, vomiting, abdominal pain, numbness, tingling, weakness, or changes with urination or bowel movements. Past History - Past Medical History Allergies/Adverse Reactions: Allergies Allergy/AdvReac Type Severity Reaction Status Date / Time No Known Allergies Allergy Verified 10/22/17 19:23 Home Medications: Ambulatory Orders Amlodipine Besylate [Norvasc -] 10 mg PO DAILY 12/27/11 Lorazepam [Ativan] 1 mg PO BID PRN 07/01/13 Anemia: No Asthma: No Cancer: No Cardiac Disorders: No CVA: No COPD: No DVT: No Dementia: No Diabetes: No Dialysis: No GI Disorders: Yes (GERD) Disorders: No HTN: Yes Hypercholesterolemia: No Kidney Stones: No Liver Disease: No Psychiatric Problems: Yes (ANXIETY) Seizures: No Thyroid Disease: No Lung CA: No - Immunization History Td Vaccination: No (unknown) Immunization Up to Date: Yes - Suicide/Smoking/Psychosocial Hx Smoking Status: Yes Smoking History: Never smoked Years of Tobacco Use: 30 Have you smoked in the past 12 months: No Number of Cigarettes Smoked Daily: 10 If you are a former smoker, when did you quit?: 3 MO ago Information on smoking cessation initiated: No 'Breaking Loose' booklet given: 11/29/16 Hx Alcohol Use: No Drug/Substance Use Hx: No Substance Use Type: None Review of Systems - Review of Systems Comments:: 10/22/17 20:27 Constitutional: No fevers, chills, fatigue, malaise HEENT: No Rhinorrhea, nasal congestion, visual changes Cardiovascular: Lightheadedness. No chest pain, syncope, palpitations, Respiratory: No Cough, SOB, Hemoptysis, Gastrointestinal: No Abdominal pain, Nausea, Vomiting, Constipation, Diarrhea, Melena Genitourinary: No Dysuria, Frequency, Urgency, Hesitancy, Hematuria, Flank pain Musculoskeletal: No Myalgia, arthralgia Skin: No rashes, itching, bruising, pallor Neurologic: Dizziness. No Headache, Numbness, Weakness, or Tingling Psychiatric: No Hallucinations. No SI or HI *Physical Exam - Vital Signs Last Vital Signs Temp Pulse Resp BP Pulse Ox 97.2 F L 64 18 134/86 97 10/22/17 19:23 10/22/17 19:23 10/22/17 19:23 10/22/17 19:23 10/22/17 19:23 - Physical Exam Comments: 10/22/17 20:27 General Appearance: Nourished. No Apparent Distress HEENT: EOMI, PHOEBE. No Pharyngeal Erythema, Tonsillar Exudate, Tonsillar Erythema Neck: No Cervical Lymphadenopathy Respiratory/Chest: Lungs Clear, Normal Breath Sounds. No Crackles, Rales, Rhonchi, Wheezing Cardiovascular: Regular Rhythm, Regular Rate. No Murmur, Gallops, Rubs Gastrointestinal/Abdominal: Normal Bowel Sounds, Soft. No Guarding, Rebound, Tenderness Musculoskeletal: No CVA Tenderness Extremity: Normal Capillary Refill Integumentary: Normal Color, Dry, Warm Neurologic: reimbursement manager II-XII NML intact, Fully Oriented, Alert, Normal Mood/Affect, Normal Response, Motor Strength 5/5. Normal Finger to Nose and Heel to Rossi Heart Score/ECG Review #1 ECG reviewed & interpreted by me at: 20:28 General ECG Interpretation: Sinus Rhythm, Normal Rate, Normal Intervals, No acute ischemic changes ED Treatment Course - LABORATORY CBC & Chemistry Diagram: 10/22/17 19:45 10/22/17 19:45 - Medications Given in the ED: ED Medications Discontinued Medications Generic Name Dose Route Start Last Admin Trade Name Freq PRN Reason Stop Dose Admin Meclizine HCl 25 mg 10/22/17 19:38 10/22/17 19:45 Antivert - PO 10/22/17 19:39 25 mg ONCE ONE Administration Medical Decision Making - Medical Decision Making 10/22/17 20:28 The patient is a 52 year old male with a history of HTN, Vertigo who presents for evaluation of lightheadedness. Differential includes but is not limited to : Vertigo, ACS, Arrhythmia, Sinusitis, Infectious, Metabolic derangement. Given the patient's history we will obtain a cbc, cmp, troponin, ekg to evaluate further. We will treat with iv fluids and meclazine here in the ED and continue to monitor and reassess while here in the ED. The patient recently had head and facial bone CT scanning just prior to presentation to the ED and we will follow up with those exams. 10/22/17 21:15 CBC, cmp, troponin, ekg are unremarkable. The patient reports improvement in his symptoms. We are comfortable discharging the patient home at this time with neurology and primary care provider follow up. We discussed the results, plan, and return precautions with the patient who voiced understanding and is agreeable with the plan. Head CT is unremarkable as read by our radiologist. *DC/Admit/Observation/Transfer Diagnosis at time of Disposition: Dizziness - Discharge Dispostion Disposition: HOME Condition at time of disposition: Stable Decision to Admit order: No - Referrals Referrals: Rob Odom MD [Staff Physician] - - Patient Instructions Printed Discharge Instructions: DI for Dizziness-Nonvertigo Additional Instructions: Please return to the ER if you experience concerning or worsening symptoms including worsening lightheadedness, weakness, or numbness. Your lab results are unremarkable here in the ER. It is important that you call to schedule a follow up appointment with your primary care provider and our neurologist within 2-3 days to discuss your ER visit and further management of your symptoms. - Post Discharge Activity
--- NOTE | 2017-10-22 20:14 | PDOC ---
Attending Attestation - Resident Resident Name: Eddy Zimmerman - ED Attending Attestation I have performed the following: I have examined & evaluated the patient, The case was reviewed & discussed with the resident, I agree w/resident's findings & plan - HPI HPI: 10/22/17 20:13 Pt comes with dizziness; he is often in the ER for chest pain and weakness and anxiety like presentation. Today vitals are normal on arrival. 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 Went to see TIMI Montesinos at [facility] and had a clean bill of kevin/cardio workup. Pt went to see ENT, and ENT gave him a script for CT head and sinuses. 10/22/17 21:11 Pt had his head and sinus CT scan prior to arrival in the ER. - Physicial Exam PE: 10/22/17 20:13 Agree with resident exam - Medical Decision Making 10/22/17 20:13 Basic labs; head and face CT pending. Pt will be hydrated in the ER and reevaluated. 10/22/17 21:14 CT head normal, normal mastoid air cells. Sinus CT scan is pending. Pt can follow with ENT for that result. Labs normal. Pt feels better. Admits he is not eating well and sleeping well. Pt will be given neurologist name who he can follow with. <Trini Martinez - Last Filed: 10/22/17 21:14> Heart Score/ECG Review - ECG Intrepretation Comment:: 10/22/17 23:36 Completed @19:49:59 Sinus rhytm with 1st degree AV block Otherwise normal ECG Vent. rate 60 bpm MA interval 212 ms QRS duration 92 ms <Stevie Watters - Last Filed: 10/22/17 23:37>
[2017-10-22 20:46] VITALS: BP 143/93; PULSE 73
[2017-10-22 20:49] LABS: ALBUMIN 3.7 g/dl (3.4-5.0); ANION GAP 10 (8-16); BLOOD UREA NITROGEN 13 mg/dL (7-18); CALCIUM 8.5 mg/dL (8.5-10.1); CHLORIDE 107 mmol/L (98-107); CO2 22 mmol/L (21-32); GLUCOSE,RANDOM 87 mg/dL (74-106); POTASSIUM 4.3 mmol/L (3.5-5.1); SGOT/AST 33 U/L (15-37); SGPT/ALT 37 U/L (12-78); SODIUM 139 mmol/L (136-145)
[2017-10-22 20:51] LABS: ALK PHOS 82 U/L (45-117); BILIRUBIN,TOTAL 0.6 mg/dL (0.2-1.0); CREATININE 0.7 mg/dL (0.7-1.3); TOT PROT 6.6 g/dl (6.4-8.2)
--- NOTE | 2017-10-24 22:22 | EKG ---
Test Reason : Blood Pressure : / mmHG Vent. Rate : 060 BPM Atrial Rate : 060 BPM P-R Int : 212 ms QRS Dur : 092 ms QT Int : 394 ms P-R-T Axes : 015 029 018 degrees QTc Int : 394 ms SINUS RHYTHM WITH 1ST DEGREE A-V BLOCK OTHERWISE NORMAL ECG WHEN COMPARED WITH ECG OF 11-JUN-2017 20:38, NO SIGNIFICANT CHANGE WAS FOUND Confirmed by VENUS MIDDLETON MD ([id number]) on 10/24/2017 10:22:21 PM Referred By: Confirmed By:VENUS MIDDLETON MD
== END 2017-10-22 21:16 | disposition home or self-care (01) ==
LOC: JER 19:20
PROC: 3E0337Z Introduction of Electrolytic and Water Balance Substance into Peripheral Vein, Percutaneous Approach (ICD-10-PCS; principal; 2017-10-22)
DX: R42 Dizziness and giddiness (principal); F41.9 Anxiety disorder, unspecified
CPT/HCPCS: 36415; 70450-TC; 70486-TC; 80053; 82550; 82553; 84484; 85025; 93005; 93010; 99283-25; J7030